=== PATIENT | female | born 1990 | race Caucasian/White ===

== ENCOUNTER 2016-09-29 20:49 | Emergency (ER) | payer OTHER ==
[~2016-09-29] VITALS: Ht 157.5 cm; Wt 83.5 kg
[2016-09-29 20:56] VITALS: Ht 157.5 cm; Wt 83.5 kg
[2016-09-29] MEDS ORDERED: ACETAMINOPHEN 325 MG TAB PO STA (22:07)
[2016-09-29] MEDS ORDERED: ONDANSETRON (ODT) 4 MG TAB ODT STA (22:07)
[2016-09-29] MEDS ORDERED: PRENAT PO (22:15)
--- NOTE | 2016-09-29 22:16 | ERD ---
ER Documentation Chief Complaint Date/Time DATE: 09/29/16 TIME: 22:12 Chief Complaint pelvic pain & lower abd cramps,lower back pain,DOMINGO, [place] HPI 25-year-old female presents here in emergency department for complaints of pelvic pain and cramping started today. Patient described the pain as cramping, 4/10 scale, accompanied with nausea and vomiting and headache, radiates to the lower back. Patient is approximately 12 weeks , 2 para 1 0. Patient denies any vaginal bleeding. Patient denies hematuria or dysuria. Patient denies any fever or chills. Patient did not take any medications up and symptoms. ROS All systems reviewed and are negative except as per history of present illness. Medications Home Meds Active Scripts Ondansetron (Ondansetron Odt) 4 Mg Tab.rapdis, 4 MG PO Q8 Y for NAUSEA AND/OR VOMITING, #30 TAB Prov:DAVID ORDAS GARBAGE WORKER 09/30/16 Acetaminophen* (Tylophen*) 500 Mg Capsule, 1 CAP PO Q6H Y for PAIN AND OR ELEVATED TEMP, #20 CAP Prov:DAVID RODAS NP 09/30/16 Cephalexin* (Keflex*) 500 Mg Capsule, 500 MG PO QID for 10 Days, CAP Prov:DAVID RODAS GARBAGE WORKER 09/30/16 Reported Medications Multivit/Min/Fol Ac/Iron/Pren* ( S*) Unknown Strength Tab, PO DAILY, TAB 09/29/16 Allergies Allergies: Coded Allergies: Pork/Porcine Containing Products (Verified Allergy, Mild, RASH, 04/21/12) egg (Verified Allergy, Mild, RASH, 04/21/12) latex (Verified Allergy, Mild, RASH, 04/21/12) hydrocodone (Verified Allergy, Unknown, swelling, 09/29/16) morphine (Verified Adverse Reaction, Intermediate, rash, 04/21/12) Uncoded Allergies: GREEN VEGETABLES (Allergy, Mild, RASH, 07/20/10) PMhx/Soc History of Surgery: Yes (LEFT EYE CORNEA TRANSPLANT) Anesthesia Reaction: No Hx Neurological Disorder: No Hx Respiratory Disorders: No Hx Cardiac Disorders: No Hx Psychiatric Problems: No Hx Miscellaneous Medical Probl: No Hx Alcohol Use: No Hx Substance Use: No Hx Tobacco Use: No Smoking Status: Never smoker FmHx Family History: No coronary disease, No diabetes, No other Physical Exam Vitals Vital Signs Date Time Temp Pulse Resp B/P Pulse Ox O2 Delivery O2 Flow Rate FiO2 09/29/16 20:56 98.1 87 18 134/93 99 Physical Exam GENERAL: The patient is well developed and appropriate for usual state of health, in no apparent distress. CHEST: Clear to auscultation bilaterally. There are no rales, wheezes or rhonchi. HEART: Regular rate and rhythm. No murmurs, clicks, rubs or gallops. No S3 or S4. ABDOMEN: Soft, nontender and nondistended. Good bowel sounds. No rebound or guarding. No gross peritonitis. No gross organomegaly or masses. No Barker sign or McBurney point tenderness. BACK: No midline or flank tenderness. EXTREMITIES: Equal pulses bilaterally. There is no peripheral clubbing, cyanosis or edema. No focal swelling or erythema. Full range of motion. Grossly neurovascularly intact. NEURO: Alert and oriented. Cranial nerves 2-12 intact. Motor strength in all 4 extremities with 5/5 strength. Sensation grossly intact. Normal speech and gait. SKIN: There is no apparent rash or petechia. The skin is warm and dry. HEMATOLOGIC AND LYMPHATIC: There is no evidence of excessive bruising or lymphedema. No gross cervical, axillary, or inguinal lymphadenopathy. Result Diagram: 09/29/16 2319 09/29/16 2319 Results 24 hrs Laboratory Tests Test 09/29/16 23:19 Alanine Aminotransferase (ALT/SGPT) 24IU/L Albumin 4.2g/dl Albumin/Globulin Ratio 1.16 Alkaline Phosphatase 86IU/L Anion Gap 17 Aspartate Amino Transf (AST/SGOT) 20IU/L Basophils # 0.110^3/ul Basophils % 0.7% Beta HCG, Quantitative 36781.0mIU/ml Blood Morphology Comment Blood Urea Nitrogen 8mg/dl Calcium Level 9.5mg/dl Carbon Dioxide Level 25mmol/L Chloride Level 99mmol/L Creatinine 0.43mg/dl Direct Bilirubin 0.00mg/dl Eosinophils # 0.110^3/ul Eosinophils % 1.5% Globulin 3.60g/dl Glucose Level 85mg/dl Hematocrit 39.7% Hemoglobin 13.5g/dl Indirect Bilirubin 0.0mg/dl Lymphocytes # 2.210^3/ul Lymphocytes % 29.1% Mean Corpuscular Hemoglobin 30.5pg Mean Corpuscular Hemoglobin Concent 34.0g/dl Mean Corpuscular Volume 89.8fl Mean Platelet Volume 8.7fl Monocytes # 0.610^3/ul Monocytes % 7.8% Neutrophils # 4.610^3/ul Neutrophils % 60.9% Nucleated Red Blood Cells # 0.010^3/ul Nucleated Red Blood Cells % 0.0/100WBC Platelet Count 53777^3/UL Potassium Level 4.2mmol/L Red Blood Count 4.4210^6/ul Red Cell Distribution Width 16.4% Sodium Level 137mmol/L Total Bilirubin 0.0mg/dl Total Protein 7.8g/dl Urine Bacteria MODERATE Urine Bilirubin NEGATIVE Urine Clarity SLIGHTLY CLOUDY Urine Color LT. YELLOW Urine Glucose NEGATIVE% Urine Hemoglobin NEGATIVE Urine Ketones NEGATIVE Urine Leukocyte Esterase 3+ Urine Microscopic RBC 0-2/HPF Urine Microscopic WBC 10-25/HPF Urine Nitrite NEGATIVE Urine Specific [place] 1.020 Urine Squamous Epithelial Cells MANY Urine Total Protein NEGATIVE Urine Urobilinogen 0.2 E.U./dL Urine pH 6.0 White Blood Count 7.610^3/ul Current Medications Medications (Trade) Dose Ordered Sig/Masoud Route PRN Reason Start Time Stop Time Status Last Admin Dose Admin Acetaminophen (Tylenol Tab) 650 mg ONCE STAT PO 09/29/16 22:07 09/29/16 22:09 DC 09/29/16 22:41 Ondansetron HCl (Zofran Odt) 4 mg ONCE STAT ODT 09/29/16 22:07 09/29/16 22:09 DC 09/29/16 22:41 Ceftriaxone Sodium (Rocephin) 1 gm ONCE ONCE IM 09/30/16 01:00 09/30/16 01:01 DC 09/30/16 01:00 Lidocaine (Xylocaine 1% (Mdv) 20 ml) 20 ml STK-MED ONCE .ROUTE 09/30/16 01:07 09/30/16 01:08 DC Patient was given Zofran here in the emergency department. After treatment, patient was able to tolerate po fluids here in the emergency department without any vomiting. There is no signs and symptoms of dehydration. Patient was given medication for pain here in emergency department, after treatment, patient verbalized feeling much better. Patient's pain is improved. Rocephin was given here in emergency department for treatment of urinary tract infection. PROCEDURE: US OB. CLINICAL INDICATION: Pelvic pain. . TECHNIQUE: Transabdominal and transvaginal views of the pelvis are available for review. COMPARISON: No prior studies are available for comparison. FINDINGS: [place]-rump length: 5.78 cm heart rate: 188 bpm Gestational sac: 4.01 cm Ultrasound estimated gestational age: 11 weeks No evidence of subchorionic hemorrhage No ovarian or adnexal mass lesion is seen, the ovaries are not visualized. There is no free fluid. RPTAT:HJJR IMPRESSION: 1. Single viable intrauterine with an estimated gestational age of 11 weeks, the estimated date of delivery 04/20/2017. 2. tachycardia of 188 bpm is of uncertain significance. Physician Reyes Date Time Electronically viewed and signed by Aaron Crouch Physician on 09/29/2016 23:08 JR/ CC: DAVID RODAS GARBAGE WORKER Procedures/MDM Medical Decision Making: Patient's symptoms of pelvic pain nonspecific at this time, possibly from urinary tract infection is in the urinalysis, patient also can have pelvic pain from the growing since she is in her second trimester. There is low suspicion for abdominal emergencies at this time. Patients abdominal exam is normal at this time. Ultrasound shows a viable at this time. Patient apparently symptoms of any threatened at this time. I spoke to Dr. Estes, OB Laborist, patient's tachycardia nonspecific at this time, he recommended patient to follow up with OB doctor within 1-2 days for reevaluation,, There is low suspicion for appendicitis, cholecystitis, abdominal aortic aneurysms or peritonitis at this time. There is low suspicion for sepsis. Patient appears well and is hemodynamically stable. No suspicion for pyelonephritis at this time, no CVA tenderness noted at this time. No leukocytosis, no bandemia, patient does not have any symptoms of sepsis at this time. Disposition: Home. Condition: Stable Prescription Keflex, Tylenol Zofran Instructions: Patient is advised to take medications as prescribed. Patient is advised to rest, increase fluid intake and do brat diet for next 1-2 days and progress as tolerated him, do good perineal hygiene. Patient is advised that if symptoms are worse, severe abdominal pain, uncontrolled vomiting, high fever, severe flank pain, worst signs and symptoms, to return to the emergency department immediately. Otherwise, patient can follow up with OB doctor 1-2 days. Departure Diagnosis: Primary Impression: Pelvic pain Additional Impressions: UTI (urinary tract infection) Urinary tract infection type: acute cystitis Hematuria presence: without hematuria Qualified Code: N30.00 - Acute cystitis without hematuria Intrauterine tachycardia Condition: Stable Patient Instructions: Pelvic Pain In : Unclear (2-3 Trimester), Understanding Urinary Tract Infections (UTIs) Additional Instructions: Patient is advised to take medications as prescribed. Patient is advised to rest, increase fluid intake and do brat diet for next 1-2 days and progress as tolerated him, do good perineal hygiene. Patient is advised that if symptoms are worse, severe abdominal pain, uncontrolled vomiting, high fever, severe flank pain, worst signs and symptoms, to return to the emergency department immediately. Otherwise, patient can follow up with OB doctor 1-2 days. DAVID RODAS NP Sep 29, 2016 22:16
--- NOTE | 2016-09-29 23:08 | RADRPT ---
PROCEDURE: US OB. CLINICAL INDICATION: Pelvic pain. . TECHNIQUE: Transabdominal and transvaginal views of the pelvis are available for review. COMPARISON: No prior studies are available for comparison. FINDINGS: [place]-rump length:5.78 cm heart rate:188 bpm Gestational sac:4.01 cm Ultrasound estimated gestational age:11 weeks No evidence of subchorionic hemorrhage No ovarian or adnexal mass lesion is seen, the ovaries are not visualized. There is no free fluid. RPTAT:HJJR IMPRESSION: 1. Single viable intrauterine with an estimated gestational age of 11 weeks, the estimate d date of delivery 04/20/2017. 2. tachycardia of 188 bpm is of uncertain significance. Physician Reyes Date Time Electronically viewed and signed by Physician Reyes on 09/29/2016 23:08 JR/
[2016-09-29 23:42] LABS: BASOPHIL # 0.1 10^3/ul (0.0-0.1); BASOPHILS % 0.7 % (0.0-2.0); EOSINOPHILS # 0.1 10^3/ul (0.0-0.5); EOSINOPHILS % 1.5 % (0.0-7.0); HEMATOCRIT 39.7 % (37.0-47.0); HEMOGLOBIN 13.5 g/dl (12.0-16.0); LYMPHOCYTES # 2.2 10^3/ul (0.8-2.9); LYMPHOCYTES % 29.1 % (15.0-51.0); MEAN CORPUSCULAR HEMOGLOBIN 30.5 pg (29.0-33.0); MEAN CORPUSCULAR VOLUME 89.8 fl (82.0-101.0); MEAN PLATELET VOLUME 8.7 fl (7.4-10.4); MONOCYTE # 0.6 10^3/ul (0.3-0.9); MONOCYTES % 7.8 % (0.0-11.0); NEUTROPHIL # 4.6 10^3/ul (1.6-7.5); NEUTROPHILS % 60.9 % (39.0-77.0); PLATELET COUNT 271 10^3/UL (140-440); RED BLOOD COUNT 4.42 10^6/ul (4.20-5.40); RED CELL DISTRIBUTION WIDTH 16.4 % (11.5-14.5); UNCORRECTED WBC 7.6 10^3/ul (4.8-10.8); WHITE BLOOD COUNT 7.6 10^3/ul (4.8-10.8)
[2016-09-29 23:44] LABS: CONDITION 1; LH ANALYZER COMMENTS 1
[2016-09-29 23:52] LABS: ALBUMIN 4.2 g/dl (3.3-4.9); POTASSIUM 4.2 mmol/L (3.5-5.1)
[2016-09-29 23:55] LABS: ALBUMIN/GLOBULIN RATIO 1.16; CREATININE 0.43 mg/dl (0.44-1.00); TOTAL PROTEIN 7.8 g/dl (6.1-8.1)
[2016-09-29 23:56] LABS: CALCIUM 9.5 mg/dl (8.4-10.2)
[2016-09-30 00:17] LABS: ADD UMIC YES; URINE BILIRUBIN (Dip) NEGATIVE (NEGATIVE); URINE BLOOD (Dip) NEGATIVE (NEGATIVE); URINE COLOR LT. YELLOW (YELLOW); URINE GLUCOSE (Dip) NEGATIVE (NEGATIVE); URINE KETONES (Dip) NEGATIVE (NEGATIVE); URINE LEUKOCYTE ESTERASE (Dip) 3+ (NEGATIVE); URINE NITRITE (Dip) NEGATIVE (NEGATIVE); URINE TOTAL PROTEIN (Dip) NEGATIVE (NEGATIVE); URINE UROBILINOGEN (Dip) 0.2 E.U./dL (0.1-1.0)
[2016-09-30] MEDS ORDERED: ONDA4TAB14 PO (00:47)
[2016-09-30] MEDS ORDERED: CEPH-443 PO (00:47)
[2016-09-30] MEDS ORDERED: ACET500C5 PO (00:47)
[2016-09-30 00:54] LABS: BACTERIA,URINE MODERATE; SQUAMOUS EPITHELIAL CELL,UR MANY; URINE RBCS 0-2 /HPF (0)
[2016-09-30] MEDS ORDERED: CEFTRIAXONE 1 GM INJ IM ONE (01:00)
[2016-09-30] MEDS ORDERED: LIDOCAINE 1% (MDV) 20 ML INJ ONE (01:07)
[2016-09-30 01:20] VITALS: BP 123/67; PULSE 78; RESP 18; TEMP 97.7
== END 2016-09-30 01:25 | disposition home or self-care (01) ==
LOC: FTE 20:49
DX: O26.891 Other specified pregnancy related conditions, first trimester (principal); R10.2 Pelvic and perineal pain; O23.11 Infections of bladder in pregnancy, first trimester; O36.8910 Maternal care for other specified fetal problems, first trimester, not applicable or unspecified; O21.9 Vomiting of pregnancy, unspecified; Z3A.11 11 weeks gestation of pregnancy; Z91.040 Latex allergy status
CPT/HCPCS: 76805; 80053; 81001; 84702; 85025; 86900; 86901; J0696; Z7610; 36415; 81003; 96372

== ENCOUNTER 2016-12-31 15:57 | Outpatient (CLI) | payer MEDICAID ==
[~2016-12-31] VITALS: Ht 157.5 cm; Wt 93.2 kg
[~2016-12-31 15:57] MED LIST: ACET500C5 PO; CEPH-443 PO; ONDA4TAB14 PO; PRENAT PO
[2016-12-31 16:03] VITALS: Ht 157.5 cm; Wt 93.2 kg
[2016-12-31 16:04] VITALS: BP 130/82
[2016-12-31 17:16] LABS: URINE BILIRUBIN (Dip) NEGATIVE (NEGATIVE); URINE BLOOD (Dip) 1+ (NEGATIVE); URINE COLOR LT. YELLOW (YELLOW); URINE GLUCOSE (Dip) NEGATIVE (NEGATIVE); URINE KETONES (Dip) 15 (NEGATIVE); URINE LEUKOCYTE ESTERASE (Dip) 2+ (NEGATIVE); URINE NITRITE (Dip) NEGATIVE (NEGATIVE); URINE TOTAL PROTEIN (Dip) NEGATIVE (NEGATIVE); URINE UROBILINOGEN (Dip) 0.2 E.U./dL (0.1-1.0)
[2016-12-31 17:17] LABS: ADD UMIC YES
[2016-12-31 17:34] LABS: BACTERIA,URINE MODERATE; SQUAMOUS EPITHELIAL CELL,UR MANY; URINE RBCS 0-2 /HPF ([, 0])
--- NOTE | 2016-12-31 18:59 | CONS ---
Date/Time of Note Date/Time of Note DATE: 12/31/16 TIME: 18:51 Consultation Date/Type/Reason Admit Date/Time December 31, 2016 OB triage consult Reason for Consultation This patient is a 26 years old 2 para 1 who had her first by section. Her estimated date of confinement is April 13, 2017 which makes her 25 weeks and 1 day. Her main complaint is lower abdominal pain for 3 days On examination she is a well-developed well-nourished lady midterm . Her vital signs appears to be normal ,blood pressure 130/80 which is slightly elevated pulse, rate 93, respirations 16 and temperature 98 . Her abdomen was soft she was complaining of slight tenderness at the palpation and pressure of the lower abdomen. On pelvic examination vulva and vagina was normal bladder was slightly tender no CVA tenderness Laboratory Tests Test 12/31/16 16:51 Urine Color LT. YELLOW Urine Clarity CLEAR Urine pH 7.5 Urine Specific [place] 1.015 Urine Ketones 15 Urine Nitrite NEGATIVE Urine Bilirubin NEGATIVE Urine Urobilinogen 0.2 E.U./dL Urine Leukocyte Esterase 2+ Urine Microscopic RBC 0-2/HPF Urine Microscopic WBC 0-2/HPF Urine Squamous Epithelial Cells MANY Urine Bacteria MODERATE Urine Hemoglobin 1+ Urine Glucose NEGATIVE% Urine Total Protein NEGATIVE Constitutional: No chills, No diaphoresis, No disoriented, No febrile, No improved, No no complaints, No other, No poor po, No requiring IVF, No requiring O2 Eyes: No discharge, No no complaints, No other, No pain, No redness, No visual change ENT: No bleeding, No congestion, No discharge, No dysphagia, No no complaints, No other, No pain, No sore throat Respiratory: No cough, No no complaints, No other, No pain, No pleuritic pain, No shortness of breath, No sputum, No wheezing Cardiovascular: No chest pain, No edema, No lightheadedness, No no complaints, No orthopenea, No other, No palpitations, No paroxysmal nocturnal dyspnea Gastrointestinal: other (Slight lower abdominal pain), No blood, No constipation, No decreased appetite, No diarrhea, No flatus, No nausea, No no complaints, No pain, No passing stool, No vomiting Genitourinary: other (On pelvic exam she has a slight bladder tenderness), No bleeding, No discharge, No dysuria, No flank pain, No hematuria, No no complaints Musculoskeletal: No back pain, No bone/joint pain, No neck pain, No no complaints, No other, No restricted range of motion, No swelling Skin: No bruising, No erythema, No laceration, No no complaints, No other, No pruritis, No rash, No skin lesions Neurologic: No confusion, No dizziness, No focal-weakness, No headache, No no complaints, No other, No seizure, No syncope Endocrine: No dry skin, No no complaints, No other, No polydypsia, No polyuria , No temp intolerance Additional Comments Her urinalysis back, 2 plus positive for leukoesterase as well as red blood cells With these finding and possibility of urinary tract infection the urine specimen will be sent for culture and sensitivity And she was discharged home with a prescription for Macrobid 100 mg tablets to be taken every 12 hours and contact us or her physician to check results of urine culture and sensitivity that we sent today Social History Smoking Status: Never smoker Exam/Review of Systems Vital Signs Vitals Vital Signs Date Time Temp Pulse Resp B/P Pulse Ox O2 Delivery O2 Flow Rate FiO2 12/31/16 16:04 98.0 130/82 Room Air Results Results 24 hrs Laboratory Tests Test 12/31/16 16:51 Urine Color LT. YELLOW Urine Clarity CLEAR Urine pH 7.5 Urine Specific [place] 1.015 Urine Ketones 15 Urine Nitrite NEGATIVE Urine Bilirubin NEGATIVE Urine Urobilinogen 0.2 E.U./dL Urine Leukocyte Esterase 2+ H Urine Microscopic RBC 0-2 Urine Microscopic WBC 0-2 Urine Squamous Epithelial Cells MANY Urine Bacteria MODERATE Urine Hemoglobin 1+ H Urine Glucose NEGATIVE Urine Total Protein NEGATIVE MONICA BARKSDALE MD December 31, 2016 18:59
== END 2016-12-31 18:45 | disposition home or self-care (01) ==
LOC: OBT 15:57 → L-D 15:57 → OBT 18:45
PROVIDERS: ATTEND Obstetrics & Gynecology
DX: O26.892 Other specified pregnancy related conditions, second trimester (principal); R10.30 Lower abdominal pain, unspecified; Z3A.25 25 weeks gestation of pregnancy
CPT/HCPCS: 81001; 81003; 87086; G0463

== ENCOUNTER 2017-01-16 01:04 | Outpatient (CLI) | payer MEDICAID ==
[~2017-01-16] VITALS: Ht 157.5 cm; Wt 95.6 kg
[~2017-01-16 01:04] MED LIST changes: -ACET500C5 PO; -CEPH-443 PO; -ONDA4TAB14 PO
[2017-01-16 01:15] VITALS: BP 111/66; PULSE 109; RESP 18
[2017-01-16 01:31] VITALS: Ht 157.5 cm; Wt 95.6 kg
--- NOTE | 2017-01-16 03:08 | RADRPT ---
PROCEDURE: US OB. CLINICAL INDICATION: patient with vaginal bleeding TECHNIQUE: Multiple sonographic images of the pelvis were obtained. The images were reviewed on a PACS workstation. COMPARISON: 11/26/2016 FINDINGS: The cervix is closed with a length of 4.0 cm. There is a single viable intrauterine gestation. Cardiac activity is present with 146 beats per min ethan. There is a breech presentation. The study was limited to evaluation of the placenta and cervix as requested. The placenta is anterior and grade 1. There is no evidence for an abruption or placenta previa. IMPRESSION: Single live intrauterine gestation in breech presentation. Closed cervix measuring 4 cm in length. Anterior grade 1 placenta without evidence of previa or abruption. RPTAT: HLBE Physician Ric Date Time Electronically viewed and signed by Physician Ric on 01/16/2017 03:08 LE/
--- NOTE | 2017-01-16 05:50 | TRIAGE ---
OB Triage Datetime Report Generated by CPN: 01/16/2017 05:50 Datetime: 01/16/2017 03:44 Labor Evaluation Frequency: N/A Monitor Mode: External Resting Tone Melvina: Relaxed Heart Rate FHR Baseline Rate: 145 Monitor Mode: External US FHR Baseline Changes: No Baseline Change Variability: Moderate 6-25 bpm Accelerations: 15X15 Decelerations: None Category: Category I Datetime: 01/16/2017 03:35 Labor Evaluation Frequency: N/A Monitor Mode: External Resting Tone [place]: Relaxed Heart Rate FHR Baseline Rate: 135 Monitor Mode: External US FHR Baseline Changes: No Baseline Change Variability: Moderate 6-25 bpm Accelerations: 15X15 Decelerations: None Category: Category I Datetime: 01/16/2017 02:35 Labor Evaluation Frequency: N/A Monitor Mode: External Resting Tone [place]: Relaxed Contraction Comments: Uterine activity noted. Heart Rate FHR Baseline Rate: 145 Monitor Mode: External US FHR Baseline Changes: No Baseline Change Variability: Moderate 6-25 bpm Accelerations: 15X15 Decelerations: None Category: Category I Datetime: 01/16/2017 01:35 Labor Evaluation Frequency: N/A Monitor Mode: External Resting Tone [place]: Relaxed Heart Rate FHR Baseline Rate: 145 Monitor Mode: External US FHR Baseline Changes: No Baseline Change Variability: Moderate 6-25 bpm Accelerations: 10X10 Decelerations: Variable Category: Category II Comments: GA 27.4 Datetime: 01/16/2017 01:20 Assessment Type: Triage Maternal Assessment Level of Consciousness: Fully Conscious DTR's/Clonus: DTRs 2+; No Clonus Headache: Denies Blurred Vision: No Respiratory Effort: Unlabored; Regular Rhythm; Equal Expansion Breath Sounds, Left: Clear and Equal Breath Sounds, Right: Clear and Equal Nausea/Vomiting: Denies RUQ Epigastric Pain: Denies Facial Edema: None Fall Risk Assessment History of Falling: (0) No Secondary Diagnosis: (0) No Ambulatory Aid: (0) Bedrest/Nurse Assist IV Therapy: (0) No Gait: (0) Normal/Bedrest/Immobile Mental Status: (0) Oriented to Own Ability Fall Score: 0 Fall Risk Score Definition: No Risk: No action required Datetime: 01/16/2017 01:15 Temperature Route: Oral Pain Assessment Pain Scale: 7 Pain Presence: Intermittent Pain Type: Cramping Pain Location: Abdomen Pain Goal: 7 Pain Relief Measures: Comfort Measures Pain Assessment Comments: Pt states she has had this cramping throughout . Datetime: 01/16/2017 01:10 Time of Arrival: 01/16/2017 01:05 EGA: 27.4 Arrived By: Wheelchair Arrived From: Emergency Dept Chief Complaint: PT C/O HEAVY RED BLEEDING X2 AT HOME Movement: Present Contractions: Denies/Absent Rupture of Membranes: Denies Vaginal Bleeding: None Vaginal Discharge: Denies Recent Sexual Intercouse: Denies Abdominal Trauma: Not Applicable Patient Complaints: Cramping Time Provider Notified: 01/16/2017 01:06 Provider Notified: md rincon Initial Plan: US PLACENTA, CERVICAL LENGTH. BLOOD TYPE. Datetime: 12/31/2016 17:04 Labor Evaluation Frequency: 0 Monitor Mode: External Resting Tone Melvina: Relaxed Heart Rate FHR Baseline Rate: 145 Variability: Moderate 6-25 bpm Accelerations: 15X15 Decelerations: None Category: Category I Pain Assessment Pain Scale: 9 Pain Presence: Intermittent Pain Location: Abdomen Pain Assessment Comments: ABDOMINAL PAIN Datetime: 12/31/2016 16:11 Stage of : OB Triage Assessment Type: Triage Maternal Assessment Level of Consciousness: Fully Conscious DTR's/Clonus: DTRs 2+; No Clonus Headache: Denies Blurred Vision: No Respiratory Effort: Unlabored; Regular Rhythm; Equal Expansion Breath Sounds, Left: Clear and Equal Breath Sounds, Right: Clear and Equal Nausea/Vomiting: Denies RUQ Epigastric Pain: Denies Lower Extremities Edema: None Degree: None Upper Extremities Edema: None Degree: None Facial Edema: None Temperature Route: Oral Fall Risk Assessment History of Falling: (0) No Secondary Diagnosis: (0) No Ambulatory Aid: (0) Bedrest/Nurse Assist IV Therapy: (0) No Gait: (0) Normal/Bedrest/Immobile Mental Status: (0) Oriented to Own Ability Fall Score: 0 Fall Risk Score Definition: No Risk: No action required Monitor Mode: External Heart Rate FHR Baseline Rate: 155 Monitor Mode: External US Pain Assessment Pain Scale: 9 Pain Presence: Intermittent Pain Type: Pressure Pain Location: Other (Annotations: VAGINAL ) Datetime: 12/31/2016 16:10 Time of Arrival: 12/31/2016 15:54 Arrived By: Ambulatory Arrived From: Home Chief Complaint: ABD, PAIN VAGINAL PRESSURE Movement: Present Contractions: Denies/Absent Rupture of Membranes: Denies Vaginal Bleeding: None Vaginal Discharge: Denies Recent Sexual Intercouse: Denies Abdominal Trauma: Not Applicable Patient Complaints: Other Time Provider Notified: 12/31/2016 17:52 Provider Notified: DR. HAYWARD Initial Plan: EFMX2, CALL -
--- NOTE | 2017-01-16 06:36 | PN ---
Date/Time of Note Date/Time of Note DATE: 01/16/17 TIME: 06:28 OB Subjective Subjective Subjective 26 y.o who had section in 2010 for PIH presented triage after X2 episodes of vaginal spotting approximately hr apart. denies recent sexual contact , c/o lower abdominal cramping pain OB Objective Objective Objective EFM no uterine activities noted tracing nl U/S no placenta previa or abruptio CVL 4cm blood type o+ no evidence of vaginal spotting during observation OB Assessment/Plan Reason for admission: vaginal bleeding Other Assessment: IUP 27w4d Other plan: d/s home with routine instructions RTH prnand advise her to return immediately any vaginal bleeding recur EDILBERTO GROSS MD January 16, 2017 06:36
== END 2017-01-16 03:53 | disposition home or self-care (01) ==
LOC: OBT 01:04 → L-D 01:04 → OBT 03:53
PROVIDERS: ATTEND Obstetrics & Gynecology
DX: O26.852 Spotting complicating pregnancy, second trimester (principal); O26.892 Other specified pregnancy related conditions, second trimester; R10.30 Lower abdominal pain, unspecified; Z3A.27 27 weeks gestation of pregnancy
CPT/HCPCS: 76815; 76817; 86900; 86901; G0463

== ENCOUNTER 2017-03-07 06:30 | Outpatient (CLI) | payer MEDICAID, OTHER ==
[~2017-03-07] VITALS: Ht 160 cm; Wt 102.2 kg
[2017-03-07] MEDS ORDERED: FERR325C PO (07:04)
[2017-03-07] MEDS ORDERED: PREN1TAB79 PO (07:04)
[2017-03-07] MEDS ORDERED: CALC600T5 PO (07:04)
[2017-03-07 07:05] VITALS: BP 125/78; PULSE 83; RESP 18; Ht 160 cm; Wt 102.2 kg
[2017-03-07] MEDS ORDERED: LACTATED RINGER'S 1,000 ML IV* SCH (07:30)
[2017-03-07 07:53] LABS: ADD UMIC YES; UR ASCORBIC ACID NEGATIVE (NEGATIVE); UR BACTERIA FEW /HPF (NONE SEEN); UR BILIRUBIN (Dip) NEGATIVE (NEGATIVE); UR BLOOD (Dip) 1+ mg/dL (NEGATIVE); UR CLARITY SLIGHTLY CLOUDY (CLEAR); UR COLOR YELLOW (YELLOW); UR GLUCOSE (Dip) NEGATIVE (NEGATIVE); UR KETONES (Dip) NEGATIVE (NEGATIVE); UR LEUKOCYTE ESTERASE (Dip) 1+ Leu/ul (NEGATIVE); UR NITRITE (Dip) NEGATIVE (NEGATIVE); UR RBC 1 /HPF (0-5); UR SPECIFIC GRAVITY (Dip) 1.008 (1.003-1.030); UR SQUAMOUS EPITHELIAL CELL FEW /HPF (FEW); UR TOTAL PROTEIN (Dip) NEGATIVE (NEGATIVE); UR UROBILINOGEN (Dip) NEGATIVE (NEGATIVE)
[2017-03-07 08:26] LABS: ADD SCAN DIFF NO
[2017-03-07 08:33] LABS: BASOPHILS % 0.3 % (0.0-2.0); EOSINOPHILS # 0.1 10^3/ul (0.0-0.5); HEMATOCRIT 34.5 % (37.0-47.0); HEMOGLOBIN 12.4 g/dl (12.0-16.0); LYMPHOCYTES # 1.7 10^3/ul (0.8-2.9); LYMPHOCYTES % 21.3 % (15.0-51.0); MEAN CORPUSCULAR HGB CONC 35.9 g/dl (32.0-37.0); MEAN CORPUSCULAR VOLUME 91.8 fl (82.0-101.0); MEAN PLATELET VOLUME 10.1 fl (7.4-10.4); MONOCYTE # 0.7 10^3/ul (0.3-0.9); MONOCYTES % 9.4 % (0.0-11.0); NEUTROPHIL # 5.3 10^3/ul (1.6-7.5); NEUTROPHILS % 67.1 % (39.0-77.0); PLATELET COUNT 237 10^3/UL (140-415); RED BLOOD COUNT 3.76 10^6/ul (4.20-5.40); WHITE BLOOD COUNT 7.9 10^3/ul (4.8-10.8)
--- NOTE | 2017-03-07 09:05 | TRIAGE ---
OB Triage Datetime Report Generated by CPN: 03/07/2017 09:04 Datetime: 03/07/2017 08:00 Stage of : OB Triage Maternal Assessment Level of Consciousness: Fully Conscious Labor Evaluation Frequency: NONE Monitor Mode: External Resting Tone [place]: Relaxed Heart Rate FHR Baseline Rate: 135 Monitor Mode: External US Variability: Moderate 6-25 bpm Accelerations: 15X15 Decelerations: None Category: Category I Pain Assessment Pain Scale: 3 Pain Presence: Constant Pain Type: Cramping Pain Location: Abdomen Pain Goal: 3 Pain Relief Measures: Comfort Measures Vaginal Exam Membrane Status: Intact Vaginal Bleeding: None Datetime: 03/07/2017 07:00 Stage of : OB Triage Labor Evaluation Frequency: x1 Monitor Mode: External Duration (sec)2399: 90 Quality: Mild Pattern: Normal: <= 5 Contractions in 10 Minutes Resting Tone [place]: Relaxed Heart Rate FHR Baseline Rate: 135 Monitor Mode: External US Variability: Moderate 6-25 bpm Accelerations: 10X10 Decelerations: None Category: Category I Datetime: 03/07/2017 06:52 Stage of : OB Triage Assessment Type: Triage Maternal Assessment Level of Consciousness: Fully Conscious DTR's/Clonus: DTRs 2+; No Clonus Headache: Temporal; Unilateral (Annotations: Top, left side of head) Blurred Vision: No Respiratory Effort: Unlabored; Regular Rhythm; Equal Expansion Breath Sounds, Left: Clear and Equal Breath Sounds, Right: Clear and Equal Nausea/Vomiting: Present (Annotations: Emesis @0500) RUQ Epigastric Pain: Denies Lower Extremities Edema: Bilateral Lower Extremities Degree: 1+ Upper Extremities Edema: None Degree: None Facial Edema: None Temperature Route: Oral Fall Risk Assessment History of Falling: (0) No Secondary Diagnosis: (0) No Ambulatory Aid: (0) Bedrest/Nurse Assist IV Therapy: (0) No Gait: (0) Normal/Bedrest/Immobile Mental Status: (0) Oriented to Own Ability Fall Score: 0 Fall Risk Score Definition: No Risk: No action required Monitor Mode: External Contraction Comments: [place] applied Heart Rate FHR Baseline Rate: 130 Monitor Mode: External US Comments: EFM applied Pain Assessment Pain Scale: 8 Pain Presence: Intermittent Pain Type: Cramping; Ache Pain Location: Abdomen; Back Pain Relief Measures: Comfort Measures Datetime: 03/07/2017 06:50 Time of Arrival: 03/07/2017 06:30 EGA: 34.5 Arrived By: Wheelchair Arrived From: Home Chief Complaint: Abd _ back pain and pressure Nausea all night then emesis x1 @0500 Urinary frequency Movement: Present Contractions: Irregular Time Contractions Began: 03/06/2017 22:00 Rupture of Membranes: Denies Vaginal Bleeding: None Vaginal Discharge: Denies Recent Sexual Intercouse: Denies Abdominal Trauma: Not Applicable Patient Complaints: Contractions; Cramping; Back Pain; Headache; Nausea; Vomiting; Urinary Frequen cy Time Provider Notified: 03/07/2017 07:23 Provider Notified: LAURA Initial Plan: EFM, UA, CBC, IV HYDRATION Datetime: 01/16/2017 01:20 Fall Score: 0 Fall Risk Score Definition: No Risk: No action required Datetime: 01/16/2017 01:10 EGA: 27.4 Datetime: 12/31/2016 16:11 Fall Score: 0 Fall Risk Score Definition: No Risk: No action required
--- NOTE | 2017-03-08 07:07 | QN ---
Documentation Comment 34 weeks co of UCX vss exam nst reactive a/p iup 34 weeks false labor HERACLIO MANN MD Mar 08, 2017 07:06
== END 2017-03-07 09:12 | disposition home or self-care (01) ==
LOC: OBT 06:30 → L-D 06:35 → OBT 09:12
PROVIDERS: ATTEND Obstetrics & Gynecology
DX: O62.9 Abnormality of forces of labor, unspecified (principal); O47.03 False labor before 37 completed weeks of gestation, third trimester; Z3A.34 34 weeks gestation of pregnancy
CPT/HCPCS: 36415; 81001; 85025; 96360; 96361; J7120; Z7500; G0463

== ENCOUNTER 2019-03-28 15:57 | Emergency (ER) | payer OTHER ==
[~2019-03-28] VITALS: Ht 157.5 cm; Wt 95.6 kg
[~2019-03-28 15:57] MED LIST changes: +ACET325T33 PO; +CALC600T5 PO; +FERR325C PO; +PREN1TAB79 PO; -PRENAT PO
[2019-03-28 16:00] VITALS: BP 127/76; PULSE 107; RESP 20; Ht 157.5 cm; Wt 95.6 kg
[2019-03-28] MEDS ORDERED: ACETAMINOPHEN 325 MG TAB PO ONE (17:00)
--- NOTE | 2019-03-28 17:08 | ERD ---
ER Documentation Chief Complaint Chief Complaint Pt reports a twin matress fell on her L side, c/o cramping HPI 28-year-old female at approximately 18 weeks , presents to the emergency department, complaining of left abdominal wall pain after sustaining a minor direct trauma with a mattress approximately 1 hour prior to arrival. The patient denies vaginal bleeding, no nausea, no vomiting, no other symptoms. The patient has established care with Dr. Adarsh Sutherland ROS All systems reviewed and are negative except as per history of present illness. Medications Home Meds Active Scripts Acetaminophen* (Tylenol*) 325 Mg Tablet, 2 TAB PO Q6 PRN for PAIN AND OR ELEVATED TEMP, #20 TAB Prov:IVAN POWELL MD 03/28/19 Reported Medications Vit W-Ca,Fe,FA(<1 mg) ( Vitamins) 1 Each Tablet, 1 EACH PO DAILY, TAB 03/07/17 Calcium Carbonate (CALCIUM) 600 Mg Tablet, 600 MG PO DAILY, TAB 03/07/17 Ferrous Sulfate (Iron) 325 Mg Capsule.er, 325 MG PO DAILY, CAP 03/07/17 Allergies Allergies: Coded Allergies: Pork/Porcine Containing Products (Verified Allergy, Mild, RASH, 03/07/17) egg (Verified Allergy, Mild, RASH, 03/07/17) latex (Verified Allergy, Mild, RASH, 03/07/17) hydrocodone (Verified Allergy, Unknown, swelling, 03/07/17) morphine (Verified Adverse Reaction, Intermediate, rash, 03/07/17) Uncoded Allergies: GREEN VEGETABLES (Allergy, Mild, RASH, 07/20/10) PMhx/Soc History of Surgery: Yes (LEFT EYE CORNEA TRANSPLANT) Anesthesia Reaction: No Hx Neurological Disorder: No Hx Respiratory Disorders: No Hx Cardiac Disorders: No Hx Psychiatric Problems: No Hx Miscellaneous Medical Probl: No Hx Alcohol Use: No Hx Substance Use: No Hx Tobacco Use: No Smoking Status: Never smoker FmHx Family History: No diabetes, No coronary disease Physical Exam Vitals Vital Signs Date Temp Pulse Resp B/P (MAP) Pulse Ox O2 O2 Flow FiO2 Time Delivery Rate 03/28/19 98.7 107 20 127/76 100 16:00 (93) Physical Exam Const: No acute distress Head: Atraumatic Eyes: Normal Conjunctiva ENT: Normal External Ears, Nose and Mouth. Neck: Full range of motion. No meningismus. Resp: Clear to auscultation bilaterally Cardio: Regular rate and rhythm, no murmurs Abd: Soft, non tender, non distended. Normal bowel sounds Skin: No petechiae or rashes Back: No midline or flank tenderness Ext: No cyanosis, or edema Neur: Awake and alert Psych: Normal Mood and Affect Results 24 hrs Laboratory Tests Test 03/28/19 16:38 Urine Color YELLOW Urine Clarity CLOUDY Urine pH 6.0 Urine Specific [place] 1.019 Urine Ketones NEGATIVE mg/dL Urine Nitrite NEGATIVE mg/dL Urine Bilirubin NEGATIVE mg/dL Urine Urobilinogen NEGATIVE mg/dL Urine Leukocyte Esterase TRACE Zeke/ul Urine Microscopic RBC 1 /HPF Urine Microscopic WBC 4 /HPF Urine Squamous Epithelial Cells MODERATE /HPF Urine Bacteria FEW /HPF Urine Mucus FEW /HPF Urine Hemoglobin NEGATIVE mg/dL Urine Glucose NEGATIVE mg/dL Urine Total Protein NEGATIVE mg/dl Current Medications Medications Dose Sig/[place] Start Time Status Last (Trade) Ordered Route PRN Stop Time Admin Dose Reason Admin 650 mg ONCE ONCE 03/28/19 DC 03/28/19 Acetaminophen PO 17:00 03/28/19 16:46 (Tylenol 17:01 Tab) DIAGNOSTIC IMAGING REPORT Patient: JUANPABLO GARZA : 1990 Age: 28 Sex: F MR #: [id number] DOS: 03/28/19 1637 Ordering MD: IVAN POWELL MD Location: [facility] Room/Bed: PROCEDURE: US OB. CLINICAL INDICATION: , pain, status post minor trauma. TECHNIQUE: Multiple sonographic images of the pelvis were obtained. Transabdominal imaging only was performed. The images were reviewed on a PACS w orkstation. COMPARISON: No prior studies are available for comparison. FINDINGS: There is a single live intrauterine gestation. Cardiac activity is present with 154 beats per minute. There is a breech presentation. Measurements were made in order to determine age. The results are as follows: BPD = 3.95 cm HC = 14.86 cm AC = 13.17 cm FL = 2.62 cm Estimated gestational age of approximately 18 weeks 1 day. The estimated date of delivery is 08/28/2019. The EFW = 233 g (8 ounces). EFW percentile: 95% The placenta is anterior, grade 0-1. There is no evidence for an abruption. There is a normal amount of amniotic fluid. The MVP measures 3.9 cm. IMPRESSION: Single live intrauterine gestation of approximately 18 weeks 1 day, based on ultrasound measurements. The estimated date of delivery is 08/28/2019. EFW percentile: 95%. Procedures/MDM Vital signs stable, Physical exam unremarkable. Differential diagnosis include but not limited to: UTI, threatening , incomplete versus complete , ectopic , physiologic implantation bleeding, molar . Physical examination and clinical presentation most likely consistent with abdominal wall contusion in an otherwise healthy 18 weeks . During the ED course the patient remained hemodynamically stable and asymptomatic. Results and clinical impression discussed with patient who agrees with management. The patient is stable to be treated outpatient and will be discharged home with close monitoring and follow-up in 2 days with her primary physician. Bed rest and pelvic rest recommended until further medical evalua tion. The patient was instructed regarding the outcomes and the potential complications like severe bleeding and . If the patient presents severe bleeding or pain, she was instructed to return to the hospital immediately. Disclaimer: Inadvertent spelling and grammatical errors are likely due to EHR/dictation software use and do not reflect on the overall quality of patient care. Also, please note that the electronic time recorded on this note does not necessarily reflect the actual time of the patient encounter. Departure Diagnosis: Primary Impression: with 18 completed weeks gestation Additional Impression: Contusion, abdominal wall Condition: Stable Additional Instructions: Thank you very much for allowing us to participate in your care. Your health and safety is our top priority at [facility]. The evaluation in the emergency department has been done to rule out an acute emergency. Chronic, fyx-poli-kyhtepyyenp conditions may have not been evaluated; therefore, you need to follow up with a primary care provider in the next 48h. If symptoms persist, worsen or new symptoms develop, then patient should return to the ED immediately. Call your primary care doctor TOMORROW for an appointment during the next 2-4 days and bring all the information provided. Have prescriptions filled and follow precisely the directions on the label. If the symptoms get worse and your provider is unavailable, return to the Emergency Department immediately. IVAN POWELL MD Mar 28, 2019 17:08
== END 2019-03-28 17:55 | disposition home or self-care (01) ==
LOC: FTE 15:57
DX: O9A.212 Injury, poisoning and certain other consequences of external causes complicating pregnancy, second trimester (principal); S30.1XXA Contusion of abdominal wall, initial encounter; W20.8XXA Other cause of strike by thrown, projected or falling object, initial encounter; Y92.9 Unspecified place or not applicable; Z3A.18 18 weeks gestation of pregnancy; Z91.040 Latex allergy status
CPT/HCPCS: 76805; 81001; Z7502; Z7610

== ENCOUNTER 2019-04-27 16:26 | Outpatient (CLI) | payer OTHER ==
[~2019-04-27] VITALS: Ht 160 cm; Wt 100.0 kg
[2019-04-27 19:29] VITALS: BP 128/79; PULSE 93; RESP 18
[2019-04-27] MEDS ORDERED: ACETAMINOPHEN 325 MG TAB PO STA (19:42)
== END 2019-04-27 21:31 | disposition home or self-care (01) ==
LOC: OBT 16:26 → L-D 16:27 → OBT 21:31
PROVIDERS: ATTEND Obstetrics & Gynecology
DX: O26.892 Other specified pregnancy related conditions, second trimester (principal); Z3A.21 21 weeks gestation of pregnancy; R35.0 Frequency of micturition
CPT/HCPCS: 76817; 81001; 87086; Z7500; Z7610; G0463